=== PATIENT | male | born 1955 | race Caucasian/White ===

== ENCOUNTER → 2023-06-18 | Outpatient (CLI) | payer MEDICARE, BC ==
--- NOTE | 2023-06-18 15:14 | XR ---
EXAMINATION TYPE: XR hand complete 3 views LT DATE OF EXAM: 06/18/2023 Comparison: None Clinical History: 67-year-old male [id number] LT HAND PAIN Findings: No acute fracture, subluxation, or dislocation is seen. No periostitis or osteolysis. No marginal ero sions. Joint spaces relatively maintained. Impression: No acute osseous abnormality seen.
== END | disposition home or self-care (01) ==
LOC: RADXRYALE 14:53
PROVIDERS: ATTEND Internal Medicine
DX: M79.642 Pain in left hand (principal)